=== PATIENT | male | born 1985 | race Asian ===

== ENCOUNTER 2023-01-18 02:45 | Observation (INO) ==
[2023-01-18] MEDS: NITROGLYCERIN SL 0.4 MG/TAB TAB SL PRN ×2 (03:20→03:38)
--- NOTE | 2023-01-18 03:24 | Emergency Department Note ---
Impression & Plan Abdominal pain, acute, epigastric, Substernal chest pain, SOB (shortness of breath), Hypertension ED Provider Note INFORMANT: Patient ED PROVIDER(S): José Luis Swartz MD CHIEF COMPLAINT: Chest and abdominal pain PLAN: Disposition: Admitted Condition: Good Outpatient prescription management: none Referral: None MEDICAL DECISION MAKING: Patient presented because of chest and abdominal pain. He had significant elevation of his blood pressure. He has a family history of cardiac disease. Patient declined analgesia. Patient was given sublingual nitroglycerin. ECG was nonischemic. His blood work was done and chest x-ray was unremarkable. After 2 sublingual nitroglycerin the patient had resolution of his discomfort. He was pain-free. His blood pressure did improve. Patient was also treated with aspirin. Patient had an unremarkable CBC and chemistry panel. Dimer negative. There was some difficulty obtaining his cardiac troponin as his blood was lipemic. That is currently in process. He did receive a CT scan of the abdomen and pelvis. There does appear to be a cyst in the liver. No free air was seen. Radiology read is pending at this time. Consultation was made with Dr. Dr. Harkins of the [facility] service. Case discussed and diagno stics were reviewed. Patient was evaluated in the ER for further management. Discussed with manager sales training After review of the information above and other included data, I feel the patient requires further management in the hospital. Triage Nursing notes reviewed and agree them. Vital Signs: reviewed and remarkable for hypertension Prior /Outside records reviewed: none Differential diagnosis: Cardiac ischemia, aortic dissection, pulmonary embolism, pneumothorax, pneumonia, pericarditis, myocarditis, esophageal rupture, GERD, cholecystitis, pancreatitis, musculoskeletal, as well as other pathologies. Diagnostics, as interpreted by me: ECG: Twelve-lead ECG revealed normal sinus rhythm at [address] in lead V3. No ST elevation or depression. Cardiac Monitoring: Cardiac monitoring ordered by me: The patient was placed on continuous cardiac monitoring and observed. It revealed a normal sinus rhythm at 64 beats per minute without ectopy or evidence of dysrhythmia. Medical decision rules: none Imaging studies: HPI: The patient is a 37year old male who presents to the Emergency Room with complaints of substernal and epigastric abdominal pain. This started 0130 hrs. and is persisting. The patient also notes the following associated symptoms, pain radiating to his back, feeling somewhat short of breath and lethargic. The patient has tried Tums for relieving factors. Current pain is rated as 6/10. Patient notes pain was about a 7 or 8. Pt denies LOC, headache, fevers, chills, diaphoresis, visual changes, neck pain, nausea, vomiting, melena, hematochezia, urinary symptoms, numbness, weakness, lymphadenopathy, rash, or other complaints. PAST MEDICAL HISTORY: See Below, patient denies PAST SURGICAL HISTORY: See Below, FAMILY HISTORY: CAD in his father. CABG at the age of 60. SOCIAL HISTORY: See Below, non-smoker HOME MEDICATIONS: See Below ALLERGIES: See Below VITALS: See Below PHYSICAL EXAMINATION: GENERAL: Awake, alert, well-appearing, in no distress HENT: Normocephalic, atraumatic. Oropharynx unremarkable. EYES: Normal conjunctiva. Sclera non-icteric. NECK: Inspection normal. Non-tender. Supple. No nuchal rigidity. FROM. No masses. RESPIRATORY: Clear to auscultation. No wheezes. No rales. Normal respiratory effort. CARDIAC: Normal rate. Normal rhythm. No murmurs. No rubs. Extremities warm and well perfused. Pulses equal. No JVD. GI: Soft, non-distended. Epigastric tenderness to palpation. No rebound or guarding. No masses. RECTAL: Deferred. MUSCULOSKELETAL: Atraumatic. Chest examination reveals no tenderness. The back is symmetrical on inspection without obvious abnormality. There is no CVA tenderness to palpation. No joint edema. LOWER EXTREMITIES: Calves are equal size bilaterally and non-tender. No edema. No discoloration. NEURO: Normal sensorium. No sensory or motor deficits noted. SKIN: No rash or jaundice noted. Past Med/Surg History Social History Smoking Status: Never smoker Feels Safe at Home: Yes Allergies Allergies Allergy/AdvReac Type Severity Reaction Status Date / Time [id number] Allergy Unknown Uncoded 03/10/03 22:42 Results & Data (ED) Vital Signs Vital Signs - 24 hr 01/18/23 02:50 01/18/23 03:01 01/18/23 03:32 Temperature 36.3 C L Temperature Source Temporal Artery Scan Pulse Rate 67 64 Pulse Rate [Apical] 64 Pulse Rate from SpO2 Sensor Pulse Rhythm Regular Regular Pulse Rhythm [Apical] Pulse Strength Normal Pulse Strength [Apical] Respiratory Rate 20 16 20 Respiratory Effort / Characteristics Non-Labored Spontaneous Non-Labored Spontaneous Respiratory Depth Normal Normal Respiratory Pattern Regular Blood Pressure 180/121 H Blood Pressure [Right Arm] 152/112 H Blood Pressure Mean 140 Blood Pressure Mean [Right Arm] 125 Blood Pressure Position Sitting Pulse Oximetry 100 100 96 Oxygen Delivery Method Room Air Room Air Room Air Sepsis Recent Fever Within 48 Hours No Sepsis New/Unexplained Change in Mental Status N/A Sepsis Action Taken by Nursing No Action Required 01/18/23 04:37 01/18/23 05:00 01/18/23 07:00 Temperature Temperature Source Pulse Rate 57 L 63 Pulse Rate [Apical] 52 L Pulse Rate from SpO2 Sensor 62 Pulse Rhythm Pulse Rhythm [Apical] Regular Pulse Strength Pulse Strength [Apical] Normal Respiratory Rate 14 15 Respiratory Effort / Characteristics Non-Labored Spontaneous Respiratory Depth Normal Respiratory Pattern Regular Blood Pressure 142/95 H Blood Pressure [Right Arm] 139/100 Blood Pressure Mean 110 Blood Pressure Mean [Right Arm] 113 Blood Pressure Position Pulse Oximetry 100 98 Oxygen Delivery Method Room Air Sepsis Recent Fever Within 48 Hours Sepsis New/Unexplained Change in Mental Status Sepsis Action Taken by Nursing 01/18/23 07:30 Temperature Temperature Source Pulse Rate 66 Pulse Rate [Apical] Pulse Rate from SpO2 Sensor 64 Pulse Rhythm Pulse Rhythm [Apical] Pulse Strength Pulse Strength [Apical] Respiratory Rate 17 Respiratory Effort / Characteristics Respiratory Depth Respiratory Pattern Blood Pressure 151/94 H Blood Pressure [Right Arm] Blood Pressure Mean 113 Blood Pressure Mean [Right Arm] Blood Pressure Position Pulse Oximetry 99 Oxygen Delivery Method Sepsis Recent Fever Within 48 Hours Sepsis New/Unexplained Change in Mental Status Sepsis Action Taken by Nursing Laboratory Data 01/18/23 03:08 01/18/23 03:08 Lab Results 01/18/23 01/18/23 01/18/23 Range/Units 03:08 03:08 03:08 WBC 9.69 (4.8-10.8) K/ul RBC 4.77 (4.70-6.10) M/uL Hgb 14.8 (14.0-18.0) g/dl Hct 41.4 L (42.0-52.0) % MCV 86.8 (80.0-100.0) fL MCH 31.0 (25.0-34.0) pg MCHC 35.7 (32.0-36.0) g/dL RDW Std Deviation 41.0 (36.4-46.3) fL RDW Coeff of Prisca 13.1 (11.5-14.5) % Plt Count 277 (130-400) K/uL MPV 10.8 (9.4-12.4) fL Immature Gran % (Auto) 0.3 % Neut % (Auto) 43.1 % Lymph % (Auto) 43.9 % Emery % (Auto) 7.5 % Eos % (Auto) 4.4 % Baso % (Auto) 0.8 % Neut # (Auto) 4.17 (1.40-6.50) K/uL Lymph # (Auto) 4.25 H (1.2-3.4) K/uL Emery # (Auto) 0.73 H (0.11-0.59) K/uL Eos # (Auto) 0.43 (0-0.50) K/uL Baso # (Auto) 0.08 (0-0.2) K/uL Immature Gran # (Auto) 0.03 (0.01-0.20) K/uL D-Dimer Cancelled Sodium Cancelled Potassium Cancelled Chloride Cancelled Carbon Dioxide Cancelled Anion Gap Cancelled BUN Cancelled Creatinine Cancelled Est Cr Clr Drug Dosing Cancelled Est GFR ( Amer) Cancelled Est GFR (Non-Af Amer) Cancelled BUN/Creatinine Ratio Cancelled Glucose Cancelled Calcium Cancelled Total Bilirubin Cancelled AST Cancelled ALT Cancelled Alkaline Phosphatase Cancelled Troponin I High Sens Cancelled Total Protein Cancelled Albumin Cancelled Globulin Cancelled Albumin/Globulin Ratio Cancelled Lipase Cancelled SARS-CoV-2, RNA, NAAT (NEGATIVE) 01/18/23 01/18/23 01/18/23 Range/Units 03:08 04:34 04:34 WBC (4.8-10.8) K/ul RBC (4.70-6.10) M/uL Hgb (14.0-18.0) g/dl Hct (42.0-52.0) % MCV (80.0-100.0) fL MCH (25.0-34.0) pg MCHC (32.0-36.0) g/dL RDW Std Deviation (36.4-46.3) fL RDW Coeff of Prisca (11.5-14.5) % Plt Count (130-400) K/uL MPV (9.4-12.4) fL Immature Gran % (Auto) % Neut % (Auto) % Lymph % (Auto) % Emery % (Auto) % Eos % (Auto) % Baso % (Auto) % Neut # (Auto) (1.40-6.50) K/uL Lymph # (Auto) (1.2-3.4) K/uL Emery # (Auto) (0.11-0.59) K/uL Eos # (Auto) (0-0.50) K/uL Baso # (Auto) (0-0.2) K/uL Immature Gran # (Auto) (0.01-0.20) K/uL D-Dimer 280 Sodium 138 Potassium 3.9 Chloride 104 Carbon Dioxide 23 Anion Gap 11 BUN 16 Creatinine 0.82 Est Cr Clr Drug Dosing 134.2 Est GFR ( Amer) 130.0 Est GFR (Non-Af Amer) 112.2 BUN/Creatinine Ratio 19.5 Glucose 94 Calcium 9.9 Total Bilirubin 0.3 AST 19 ALT 21 Alkaline Phosphatase 56 Troponin I High Sens Cancelled Total Protein 7.0 Albumin 4.4 Globulin 2.6 Albumin/Globulin Ratio 1.7 Lipase 22 SARS-CoV-2, RNA, NAAT NEGATIVE (NEGATIVE) Administered Medications Nitroglycerin (Nitroglycerin Sl 0.4 Mg/Tab Tab) 0.4 mg SL Q5M PRN PRN Reason: Chest Pain Stop: 02/17/23 03:03 Last Admin: 01/18/23 03:38 Dose: 0.4 mg Documented By: Admin: 01/18/23 03:20 Dose: 0.4 mg Documented By: DANIA Discontinued Medications Aspirin (Aspirin Chew 324 Mg) 324 mg PO NOW STA Stop: 01/18/23 04:25 Last Admin: 01/18/23 05:24 Dose: 324 mg Documented By: DANIA Ioversol (Optiray 320 100ml) 92 ml IV ONCE ONE Stop: 01/18/23 06:33 Last Admin: 01/18/23 06:34 Dose: 92 ml Documented By: JACKY Discharge Plan Visit Data Chief Complaint: Cardiac Assessment Stated Complaint: CHEST,BACK PAIN,SOB ED Provider: José Luis Swartz Discharge Problem: Abdominal pain, acute, epigastric, Substernal chest pain, SOB (shortness of breath), Hypertension Forms Stand Alone Forms: [facility] Referrals Referrals: Flaquito Bob MD [Primary Care Provider] -
[2023-01-18 03:47] LABS: Basophils # (auto) 0.08 K/uL (0-0.2); Basophils % (auto) 0.8 %; Eosinophils # (auto) 0.43 K/uL (0-0.50); Eosinophils % (auto) 4.4 %; Hematocrit (blood only) 41.4 % (42.0-52.0); Hemoglobin 14.8 g/dl (14.0-18.0); Immature Granulocytes # (auto) 0.03 K/uL (0.01-0.20); Immature Granulocytes % (auto) 0.3 %; Lymphocytes # (auto) 4.25 K/uL (1.2-3.4); Lymphocytes % (auto) 43.9 %; Mean Corpuscular Hgb Conc 35.7 g/dL (32.0-36.0); Mean Corpuscular Volume 86.8 fL (80.0-100.0); Mean Platelet Volume 10.8 fL (9.4-12.4); Monocytes # (auto) 0.73 K/uL (0.11-0.59); Monocytes % (auto) 7.5 %; Neutrophils # (auto) 4.17 K/uL (1.40-6.50); Neutrophils % (auto) 43.1 %; Platelet Count 277 K/uL (130-400); RDW Coefficient of Variation 13.1 % (11.5-14.5); Red Blood Count 4.77 M/uL (4.70-6.10); White Blood Count 9.69 K/ul (4.8-10.8)
[2023-01-18] MEDS ORDERED: ASPIRIN CHEW 324 MG PO STA (04:24)
[2023-01-18 05:27] LABS: Albumin Globulin Ratio 1.7 (0.9-2); Albumin Level 4.4 gm/dl (3.4-5.0); BUN Creatinine Ratio 19.5 (10-20); Bilirubin,Total 0.3 mg/dl (0.2-1.0); Calcium 9.9 mg/dl (8.6-10.3); Creatinine Clr Calc Pharmacy 134.2 ml/min; Est GFR (Non-African American) 112.2 ml/min; Globulin 2.6 gm/dl (2.5-4.0); Potassium 3.9 mmol/L (3.5-5.1)
[2023-01-18 05:34] LABS: D Dimer 280 ug/L FEU (0-500)
[2023-01-18] MEDS ORDERED: OPTIRAY 320 100ml IV ONE (06:32)
--- NOTE | 2023-01-18 07:24 | History & Physical Report ---
Date of Service January 18, 2023 Assessment & Plan (1) Abdominal pain, acute, epigastric: Plan: Differential includes PUD, cardiac issues although less likely as troponin negative and pain constant x 3 days. Could be early pancreatitis given severe hypertriglyceridemia but no pancreatitis seen on CT and normal lipase With frequent NSAID and Excedrin use, could be peptic ulcer although no evidence of bleeding With severe hypertriglyceridemia with TG 1375, HDL 33, LDL not able to be measured With elevated BPs likely from pain and anxiety D-dimer negative so not likely PE -admit to PCU for tele monitoring -serial troponins, resting ECHO, and stress ECHO given risk factors for CAD with HTN, hyperlipidemia,and +FH -keep NPO, start LR at 150mLs/hr and follow TGs and lipase again in AM -start atorvastatin, recommend low fat and low glucose diet, abstinence from E Lisa for severe hypertriglyceridemia -consult GI to see about EGD to assess for PUD, and opinion on if could be early acute pancreatitis -follow CBC, CMP, lipase, TGs -start Protonix 40mg po daily -IV dilaudid prn pain, tylenol for milder pain (2) Hypertriglyceridemia: Plan: as above may need to add on fenofibrate if TGs don't improve to less than 500 with statin, low fat and low glucose diet check hsCRP-send out test (3) Tension headache: Plan: tylenol prn avoid NSAIDs given possible PUD (4) Elevated blood pressure reading: Plan: BPs 150-160s/100 on admission. BPs at home ususally 130s/90s Likely from pain, anxiety (5) Liver lesion: Plan: check MRI abdomen check hepatitis panel Plan DVT proph-Lovenox Dispo-admit on obs to PCU History of Present Illness Chief Complaint: Upper abdominal pain Primary Care Provider: Flaquito Bob MD This pt is a 37 yo male with a h/o borderline HTN and hyperlipidemia who p/w 3 days of progressively worsening, constant epigastric pain radiating through to the mid back. It became fore severe last night and was not relieved with TUMs. It seems somewhat worse with lying flat. Was associated with SOB because of severity of pain. Denies black tarry stools or BRBPR. Some nausea but no vomiting. With some lower appetite. Not worse with eating. He does take NSAIDs or Excedrin 1/2 times per week for chronic tension headaches. In the ER, he was found to have very lipemic blood which caused a long delay in getting a troponin level drawn-troponin finally came back at 3. Otherwise labs normal including D-dimer, LFTs, CBC, and lipase. Pain was treated with NTG x 2 which made the pain somewhat better but not completely resolved. ECG normal. CXR normal, CT abd/pel with focal nodular hyperplasia in liver, otherwise normal. He has a +FH in his father of CAD/ME in his 60s. He will be admitted for cardiac workup in addition to workup for his epigastric pain. Allergies Allergy/AdvReac Type Severity Reaction Status Date / Time [id number] Allergy Unknown NKA Uncoded 01/18/23 08:06 Home Medications Medication Instructions Recorded Confirmed Type No Known Home Medications 01/18/23 01/18/23 History Past Med/Surg History Medical History Hypertriglyceridemia Tension headache Surgical History No history of previous surgery Family History Father Coronary heart disease Dyslipidemia Mother Fatty liver Dyslipidemia Social History Smoking Status: Never smoker Second Hand Exposure: No; Do You Dip or Chew Tobacco: No; Tobacco Cessation Education Requested by Patient: No Hx Alcohol Use: Yes Alcohol type: beer Alcohol type Comment: 2 beers once weekly Alcohol Intake Frequency: 2-4 x/Month Hx Substance Use: No Preferred Language: Thai Communication Ability: Effective [employer] Account Assistant Required: No Beliefs That Will Affect Care: None marital status: Current Living Situation: Alone current occupational status: employed current occupation: Regulatory Coordinator Other Information That Helps Us Care for You: No Feels Safe at Home: Yes Safety Concerns: Feels Safe At This Time Physical Activity Frequency: 1-2 Times per Week Assistive Devices: Glasses Review of Systems Review of Systems: All systems reviewed & are unremarkable except as noted in HPI & below no fevers/chills, cough or cold symptoms, +mild headache, no photophobia,no rashes Physical Exam Constitutional: WD/WN, vitals as above Eyes: PERRL, conjunctivae normal, anicteric sclerae ENMT: external ear and nose normal, oropharynx normal Neck: trachea midline, no thyromegaly Respiratory: normal respiratory effort, lungs clear to auscultation Cardiovascular: RRR, no murmur, no edema Vessels: no JVD, no carotid bruit and no abdominal aortic bruit Chest (Breasts): Chest: normal inspection of chest Gastrointestinal (Abdomen): Inspection/Auscultation: abdomen normal to inspection and normal bowel sounds; abdomen not distended Percussion/Palpation: + abdomen tender (RUQ and epigastric region without guarding) and abdomen soft; no abdominal mass and no ascites Musculoskeletal: Extremities: extremities normal to inspection; no cyanosis and no clubbing Skin: no rashes, warm and dry Neurologic: moves all extremities and awake; no focal motor deficits Psychiatric: A+Ox3, euthymic affect Lymphatic: no lymphedema Results & Data Results & Data Vital Signs (Past 12 Hours) Vital Signs Temp Pulse Pulse Resp BP BP Pulse Ox 01/18/23 05:00 52 L 14 139/100 100 01/18/23 04:37 57 L 01/18/23 03:32 64 20 152/112 H 96 01/18/23 03:01 64 16 100 01/18/23 02:50 36.3 C L 67 20 180/121 H 100 O2 Del Method 01/18/23 05:00 Room Air 01/18/23 04:37 01/18/23 03:32 Room Air 01/18/23 03:01 Room Air 01/18/23 02:50 Room Air Laboratory Results CBC, CMP, troponin, D-dimer, Lipid panel reviewed Diagnostic Findings Chest X-Ray 01/18/23 02:57 XR chest 1V portable HISTORY: Chest pain, nonspecific COMPARISON: None. FINDINGS: The lungs are clear. Cardiac silhouette is normal in size. No pleural effusions. No pneumothorax. IMPRESSION: No acute process. ACT 112: Negative or not required by law. Electronically signed by: Christopher Goins M.D. 01/18/2023 8:18 AM Abdomen/Pelvis CT 01/18/23 06:[address] WITH IV CONTRAST CT DOSE: 1258.40 mGy.cm HISTORY: upper abd pain TECHNIQUE: Multiaxial CT images of the abdomen and pelvis were performed following the use of intravenous contrast. A dose lowering technique was utilized adhering to the principles of ALARA. COMPARISON STUDY: None. FINDINGS: There is a trace right pleural effusion. Mild dependent changes seen at the lung bases. No pneumoperitoneum. No pneumatosis. No acute fractures identified. There is a 7 mm lesion within the right hepatic dome on image 31. This may demonstrate a small focus of discontinuous peripheral nodular enhancement and therefore favors a hemangioma. There is also a 3.3 cm lesion within the right hepatic lobe demonstrating discontinuous peripheral nodular enhancement consistent with a hemangioma. There is a slightly hypodense lesion within the left hepatic lobe which may demonstrate a central scar and measures 5 cm. Therefore, this could represent focal nodular hyperplasia. The gallbladder, pancreas, spleen, adrenal glands, and kidneys are unremarkable. No hydronephrosis. The main portal vein is patent. Normal caliber abdominal aorta. No retroperitoneal or pelvic lymphadenopathy. No pelvic free fluid. The bladder is unremarkable. No bowel wall thickening or obstruction. Normal appendix. IMPRESSION: 1. No bowel wall thickening or obstruction. 2. Normal appendix. 3. Hepatic lesions as described above. The dominant 5 cm lesion within the left hepatic lobe may represent focal nodular hyperplasia. Follow-up nonemergent dedicated liver MRI is recommended for confirmation. ACT 112: Positive. There are findings on this exam that require communication between the performing entity and the patient following Patient Test Result Information Act ([place] Act 112) guidelines. Electronically signed by: Christopher Goins M.D. 01/18/2023 7:57 AM ECG Additional Comments: NSR, rate 63, normal, no ischemic changes Code Status & VTE Plan Code Status FULL Code VTE Prophylaxis Plan VTE Prophylaxis will be ordered: Yes PG Care Time/CCT Total # of Minutes Spent Total Time Spent with Patient: Total time spent is greater than 50% in coordination of care (as documented) at patient's floor/unit and/or counseling patient: Coding Level of Care Code 14243 INT INP/OBS CARE 3/75MIN Diagnoses Abdominal pain, acute, epigastric R10.13 Hypertriglyceridemia E78.1 Tension headache G44.209 Elevated blood pressure reading R03.0 Liver lesion K76.9
--- NOTE | 2023-01-18 07:59 | CT Scan Report ---
ABDOMEN AND PELVIS CT WITH IV CONTRAST CT DOSE: 1258.40 mGy.cm HISTORY: upper abd pain TECHNIQUE: Multiaxial CT images of the abdomen and pelvis were performed following the use of intrave nous contrast. A dose lowering technique was utilized adhering to the principles of ALARA. COMPARISON STUDY: None. FINDINGS: There is a trace right pleural effusion. Mild dependent changes seen at the lung bases. No pneumoperitoneum. No pneumatosis. No acute fractures identified. There is a 7 mm lesion within the ri ght hepatic dome on image 31. This may demonstrate a small focus of discontinuous peripheral nodular enhancement and therefore favors a hemangioma. There is also a 3.3 cm lesion within the right hepatic lobe demonstrating discontinuous peripheral nodular enhancement consistent with a hemangioma. There is a slightly hypodense lesion within the left hepatic lobe which may demonstrate a central scar and measures 5 cm. Therefore, this could represent focal nodular hyperplasia. The gallbladder, pancreas, spleen, adrenal glands, and kidneys are unremarkable. No hydronephrosis. The main portal vein is chacon nt. Normal caliber abdominal aorta. No retroperitoneal or pelvic lymphadenopathy. No pelvic free flui d. The bladder is unremarkable. No bowel wall thickening or obstruction. Normal appendix. IMPRESSION: 1. No bowel wall thickening or obstruction. 2. Normal appendix. 3. Hepatic lesions as described above. The dominant 5 cm lesion within the left hepatic lobe may repr esent focal nodular hyperplasia. Follow-up nonemergent dedicated liver MRI is recommended for confirm ation. ACT 112: Positive. There are findings on this exam that require communication between the performing entity and the patient following Patient Test Result Information Act ([place] Act 112) guidelines. Electronically signed by: Christopher Goins M.D. 01/18/2023 7:57 AM
--- NOTE | 2023-01-18 08:20 | XRay Report ---
XR chest 1V portable HISTORY: Chest pain, nonspecific COMPARISON: None. FINDINGS: The lungs are clear. Cardiac silhouette is normal in size. No pleural effusions. No pneumot horax. IMPRESSION: No acute process. ACT 112: Negative or not required by law. Electronically signed by: Christopher Goins M.D. 01/18/2023 8:18 AM
[2023-01-18 08:25] LABS: Chol HDL Ratio 7.5 (0-5); Cholesterol 249 mg/dl (0-200); HDL Cholesterol 33 mg/dl; Triglycerides 1370 mg/dl (0-150)
[2023-01-18] MEDS ORDERED: ALUMINUM/MAGNESIUM SUSP 30 ML UDC PO PRN (11:11)
[2023-01-18] MEDS ORDERED: ONDANSETRON INJ 2 MG/ML 2 ML VIAL IV PRN (11:11)
[2023-01-18] MEDS ORDERED: MoRPHine SULFATE 2 MG/ML CARP IV PRN (11:11)
[2023-01-18] MEDS ORDERED: POLYETHYLENE (MIRALAX) 17 GM PACK PO PRN (11:11)
[2023-01-18] MEDS: ACETAMINOPHEN 325 MG TAB PO PRN ×2 (11:26→16:08)
[2023-01-18] MEDS ORDERED: HYDROmorphone INJ 0.5 MG/0.5 ML SYR IV PRN (11:47)
--- NOTE | 2023-01-18 12:29 | XCELERA ---
[id number]
[2023-01-18] MEDS: LACTATED RINGER'S 1,000 ML IV SCH ×2 (12:33→22:13)
[2023-01-18] MEDS: PANTOprazole 40 MG TAB PO SCH (13:18)
[2023-01-18] MEDS: ATORVASTATIN 40 MG TAB PO SCH (13:18)
[2023-01-18] MEDS: ENOXAPARIN INJ 40 MG/0.4 ML SYR SQ SCH (13:18)
[2023-01-18] MEDS ORDERED: GADOXETATE DISODIUM IV ONE (15:40)
--- NOTE | 2023-01-18 18:01 | Magnetic Resonance Report ---
MR abdomen wo/w con HISTORY: 37 years-old Male liver nodule,abdominal pain follow-up study. Patient with indeterminate l iver lesions. COMPARISON: CT abdomen and pelvis of same day TECHNIQUE: Multiplanar multisequence MRI of the abdomen was obtained both with and without the use of IV contrast utilizing liver protocol FINDINGS: The imaged lower chest and imaged pelvic structures appear unremarkable. No acute intra-abdominal abn ormality identified. The osseous structures appear to be within normal limits. Unremarkable appearanc e of the spleen, pancreas, gallbladder, adrenal glands and kidneys. No hydronephrosis. Aorta and IVC are within normal limits. No bowel obstruction or bowel wall thickening. Unremarkable soft tissues. T here is suggestion of mild cystic dilation of the central thoracic spinal cord. MRCP images demonstrate no intrahepatic or extrahepatic biliary ductal dilation. Normal common bile d uct, 3 mm. No pancreatic ductal dilation or pancreatic divisum. The liver is normal in size. No evide nce of fatty infiltration. Ovoid circumscribed 3.5 x 2.8 x 2.8 cm lesion within segment VIII of the l iver on image 8 series 5 is T1 hypointense and T2 hyperintense demonstrating a mural calcification me asuring 9 mm. This lesion demonstrates peripheral discontinuous nodular enhancement without centripet al filling. The previously noted 7 mm lesion of the hepatic dome is not visualized secondary to motio n artifact from the adjacent diaphragm. There is an ovoid T1 and T2 predominantly isointense lesion w ithin the lateral left hepatic lobe measuring 4.3 x 5.7 x 4.4 cm which demonstrates a central stellat e scar. The lesion is hyperintense to liver on the portal venous phase and retains Eovist on the 20 m inute images. IMPRESSION: 1. 5.7 cm lesion within the lateral left hepatic lobe demonstrates imaging characteristics compatible with focal nodular hyperplasia. 2. 3.5 cm T2 hyperintense lesion within segment VIII of the right hepatic lobe may represent a hailee ioma. Six-month follow-up MRI of the liver recommended. 3. No acute intra-abdominal abnormality. 4. No biliary duct dilation. ACT 112: Negative or not required by law. The above report was generated using voice recognition software. It may contain grammatical, syntax o r spelling errors. Electronically signed by: Maxim Mcdonough M.D. 01/18/2023 5:59 PM
[2023-01-18] MEDS ORDERED: hydrALAZINE HCL 20 MG/ML VIAL IV PRN (19:35)
[2023-01-19] MEDS: LACTATED RINGER'S 1,000 ML IV SCH (06:01)
[2023-01-19 06:45] LABS: Basophils # (auto) 0.05 K/uL (0-0.2); Basophils % (auto) 0.6 %; Eosinophils # (auto) 0.29 K/uL (0-0.50); Eosinophils % (auto) 3.4 %; Hematocrit (blood only) 43.1 % (42.0-52.0); Hemoglobin 14.2 g/dl (14.0-18.0); Immature Granulocytes # (auto) 0.02 K/uL (0.01-0.20); Immature Granulocytes % (auto) 0.2 %; Lymphocytes % (auto) 35.3 %; Mean Corpuscular Hemoglobin 28.1 pg (25.0-34.0); Mean Corpuscular Hgb Conc 32.9 g/dL (32.0-36.0); Mean Corpuscular Volume 85.3 fL (80.0-100.0); Mean Platelet Volume 10.5 fL (9.4-12.4); Monocytes # (auto) 0.62 K/uL (0.11-0.59); Monocytes % (auto) 7.3 %; Neutrophils # (auto) 4.52 K/uL (1.40-6.50); Neutrophils % (auto) 53.2 %; Platelet Count 236 K/uL (130-400); RDW Coefficient of Variation 12.9 % (11.5-14.5); RDW Standard Deviation 39.9 fL (36.4-46.3); Red Blood Count 5.05 M/uL (4.70-6.10)
[2023-01-19 07:06] LABS: BUN Creatinine Ratio 10.1 (10-20); Calcium 9.1 mg/dl (8.6-10.3); Creatinine Clr Calc Pharmacy 137.5 ml/min; Est GFR (Non-African American) 113.9 ml/min
[2023-01-19 08:01] LABS: Estimated Average Glucose 111 mg/dl; Hemoglobin A1C 5.5 % (4.5-5.6)
[2023-01-19] MEDS: ATORVASTATIN 40 MG TAB PO SCH (08:08)
[2023-01-19] MEDS: PANTOprazole 40 MG TAB PO SCH (08:08)
[2023-01-19] MEDS ORDERED: ASPIRIN 81 MG ECTAB PO SCH (09:00)
--- NOTE | 2023-01-19 10:00 | Electrocardiogram Report ---
Test Reason : Blood Pressure : / mmHG Vent. Rate : 063 BPM Atrial Rate : 063 BPM P-R Int : 176 ms QRS Dur : 098 ms QT Int : 414 ms P-R-T Axes : 043 005 004 degrees QTc Int : 423 ms Normal sinus rhythm Normal ECG No previous ECGs available Confirmed by Henry Schmitz ([id number]) on 01/19/2023 9:59:44 AM Referred By: REFERRED SELF Confirmed By:Henry Schmitz
[2023-01-19] MEDS ORDERED: lisinopril 10 MG TAB PO SCH (13:15)
[2023-01-19] MEDS: ENOXAPARIN INJ 40 MG/0.4 ML SYR SQ SCH (13:29)
--- NOTE | 2023-01-19 13:52 | Discharge Summary ---
Date of Service January 19, 2023 Admission HPI Per Admitting Provider This pt is a 37 yo male with a h/o borderline HTN and hyperlipidemia who p/w 3 days of progressively worsening, constant epigastric pain radiating through to the mid back. It became fore severe last night and was not relieved with TUMs. It seems somewhat worse with lying flat. Was associated with SOB because of severity of pain. Denies black tarry stools or BRBPR. Some nausea but no vomiting. With some lower appetite. Not worse with eating. He does take NSAIDs or Excedrin 1/2 times per week for chronic tension headaches. In the ER, he was found to have very lipemic blood which caused a long delay in getting a troponin level drawn-troponin finally came back at 3. Otherwise labs normal including D-dimer, LFTs, CBC, and lipase. Pain was treated with NTG x 2 which made the pain somewhat better but not completely resolved. ECG normal. CXR normal, CT abd/pel with focal nodular hyperplasia in liver, otherwise normal. He has a +FH in his father of CAD/DE in his 60s. He will be admitted for cardiac workup in addition to workup for his epigastric pain. Principal Diagnosis Epigastric pain probably from acute gastritis, hypertension, hypertriglyceridemia Discharge Exam General-alert and oriented x3, no fevers, no chills HEENT-head atraumatic and normocephalic, pupils equal and reactive to light, extraocular muscles intact Neck-no lymphadenopathy or thyromegaly, trachea midline Chest-clear to auscultation percussion. No rales wheezing or rhonchi Cardiac-regular rate and rhythm, normal S1 and S2 Abdomen-normal bowel sounds, nontender, no hepatosplenomegaly Extremities-no cyanosis, clubbing, or edema Neuro-cranial nerves II through XII intact, motor and sensory function within normal limits, strength symmetrical , no focal deficits Psych-normal affect, normal mood Discharge Data Allergies Allergy/AdvReac Type Severity Reaction Status Date / Time [id number] Allergy Unknown NKA Uncoded 01/18/23 08:06 Consultations 01/18/23 06:09 ED Decision to Admit Stat 01/18/23 11:42 Consult Gastroenterology Routine Procedures Performed Operation Date: 01/22/23 16:30 <No data on this case meets the specified criteria> Ordered Studies 01/18/23 06:08 CT Abd and Pelvis [CT abd pelvis IV con only] Stat 01/18/23 11:47 MR abdomen wo/w con Routine Hospital Course (1) Abdominal pain, acute, epigastric: Now resolved. This probably was acute gastritis from hyperacidity. We will continue Protonix at discharge. He does not need an EGD. Appreciate gastroenterology input. (2) Hypertriglyceridemia: Moderate. He is now on statin therapy. Will need outpatient follow-up. (3) Tension headache: tylenol prn (4) Elevated blood pressure reading: Lisinopril has been started. Dosage may need further adjustment as an outpatient (5) Liver lesion: Appears benign. Outpatient follow-up warranted Plan DVT proph-Lovenox Dispo-Home today, January 19, on lisinopril, Protonix, atorvastatin Total Time Total Time Spent Total Time Spent (In Minutes): 45 minutes Discharge Plan Discharge Items Patient Disposition: Home - Self-Care Reason For Visit: CHEST PAIN Discharge Diagnosis: Epigastric pain probably due to acute gastritis, essential hypertension, hypertriglyceridemia Activity: Resume your previous activity Non-emergency contact: Primary Care Provider Call non-emergency contact if: you have any medication questions Follow-up/Referrals: Flaquito Bob MD [Primary Care Provider] - Diet: Regular and Heart Healthy Addtl Attending Provider Instructions: Take lisinopril, Protonix, atorvastatin as directed Pending Studies at Discharge: No Stand-Alone Forms: [facility], Smoking Cessation Medications and DC Order Prescriptions: New atorvastatin 40 mg Tablet 40 mg PO QAM Qty: 30 0RF pantoprazole 40 mg Tablet,Delayed Release (Dr/Ec) 40 mg PO QAM Qty: 15 0RF lisinopril 10 mg Tablet 10 mg PO QAM Qty: 30 0RF Discharge Orders: Discharge Order (Routine); Ordered 01/19/23 Ordered By: Tan Avila Admission Data Admit Date/Time: 01/18/23 09:10 Attending Provider: Tan Avila Admit Provider: Lashell Harkins Primary Care Provider: Flaquito Bob Other Providers: Jeronimo Moses ; Vanessa Mead Jr Coding Level of Care Code 59236 INP/OBS DISCH >30 MIN Diagnoses Abdominal pain, acute, epigastric R10.13 Hypertriglyceridemia E78.1 Tension headache G44.209 Elevated blood pressure reading R03.0 Liver lesion K76.9
--- NOTE | 2023-01-19 16:29 | XCELERA ---
[id number]
--- NOTE | 2023-01-20 05:41 | Electrocardiogram Report ---
Test Reason : Blood Pressure : / mmHG Vent. Rate : 065 BPM Atrial Rate : 065 BPM P-R Int : 164 ms QRS Dur : 100 ms QT Int : 438 ms P-R-T Axes : 052 009 007 degrees QTc Int : 455 ms Normal sinus rhythm Incomplete right bundle branch block T wave abnormality, consider anterior ischemia Abnormal ECG When compared with ECG of 18-JAN-2023 02:58, T wave inversion more evident in Anterior leads Confirmed by Henry Schmitz ([id number]) on 01/20/2023 5:40:38 AM Referred By: REFERRED SELF Confirmed By:Henry Schmitz
[2023-01-20 08:28] LABS: HBSAG NON-REACTIVE (NON-REACTIVE); Hepatitis A Antibody IgM NON-REACTIVE (NON-REACTIVE); Hepatitis B Core Antibody IgM NON-REACTIVE (NON-REACTIVE)
[2023-01-20 13:57] LABS: C-Reactive Protein High Sens. 0.8 mg/L
== END 2023-01-19 14:19 | disposition home or self-care (01) ==
LOC: ED 02:45 → EDINP 02:45 → SUATTDRO 09:10 → EDINP 11:34 → 2S 12:46